=== PATIENT | male | born 1995 | race Caucasian/White ===

== ENCOUNTER 2022-08-06 15:57 | Emergency (ER) | payer OTHER, SELFPAY ==
[2022-08-06 15:59] VITALS: BP 138/74; PULSE 76; RESP 16; TEMP 37.1; O2SAT 100
--- NOTE | 2022-08-06 16:19 | ED.GENADULT ---
HPI - General Adult General Chief complaint: Unspecified Stated complaint: facial swelling Time Seen by Provider: 08/06/22 16:05 Source: patient Mode of arrival: ambulatory Limitations: no limitations History of Present Illness HPI narrative: 27-year-old male presents today with complaints of left jaw pain and swelling that he noted this morning. Patient states he does have poor dentition and is waiting for his insurance to kick in next week. Patient able to intake food and fluids without issue. Denies shortness of breath, or difficulty swallowing. Denies fever, chills, body aches. Related Data Allergies Allergy/AdvReac Type Severity Reaction Status Date / Time No Known Allergies Allergy Verified 08/06/22 16:06 Review of Systems Review of Systems: CONSTITUTIONAL: Denies fever, chills, or sweats. EYES: Denies visual changes, redness, or discharge. ENT: Left jaw swelling and left tooth pain. Denies rhinorrhea, congestion, sore throat, or otalgia. CARDIOVASCULAR: Denies chest pain, palpitations, or edema. RESPIRATORY: Denies cough or dyspnea. SKIN: Denies rash or itching. MUSCULOSKELETAL: Denies back pain, joint pain, or myalgia. NEUROLOGIC: Denies headache, numbness, dizziness, or weakness. PSYCHIATRIC: Denies anxiety or depression. Exam Narrative: GENERAL: Well-appearing, well-nourished, and in no acute distress. HEAD: Normocephalic, atraumatic. EYES: PERRLA and EOMI. ENT: Nares clear, no rhinorrhea or epistaxis. Mucous membranes moist. Oropharynx without tonsillar hypertrophy exudate or other lesions. Bilateral TMs pearly soriano nonbulging. Swelling to left lower jaw minimal to moderate in nature. No abscess noted. Tenderness to left third molar. Erythema noted to where third molar is erupting. No Ludewig's angina, no trismus. NECK: Supple. No adenopathy or masses. No carotid bruits or JVD CHEST: Clear to auscultation. No respiratory distress. No wheezes rales or rhonchi HEART: Regular rate and rhythm. No murmur heard. Normal peripheral pulses. . Course Vital Signs Vital signs: Vital Signs Temperature 98.7 F 08/06/22 15:59 Pulse Rate 76 08/06/22 15:59 Respiratory Rate 16 08/06/22 15:59 Blood Pressure 138/74 08/06/22 15:59 Pulse Oximetry 100 08/06/22 15:59 Oxygen Delivery Room Air 08/06/22 15:59 Temperature 98.7 F 08/06/22 15:59 Pulse Rate 76 08/06/22 15:59 Respiratory Rate 16 08/06/22 15:59 Blood Pressure 138/74 08/06/22 15:59 Pulse Oximetry 100 08/06/22 15:59 Oxygen Delivery Room Air 08/06/22 15:59 Medical Decision Making MDM Narrative Medical decision making narrative: 27-year-old male HPI as noted. Differentials as noted below. Moderate amount of swelling but patient able to open mouth. No trismus or Ludewig's angina noted. Dexamethasone given here to help with the swelling and antibiotics prescribed. Patient will be discharged home and instructed to follow-up with dentist. She is aware to return with any new or worsening symptoms. Differential Diagnosis Differential Diagnosis: Differential diagnosis include toothache, dental abscess, dental caries, jaw swelling. Medical Records Medical records reviewed: Yes I reviewed the external patient's medical records. Vital Signs Vital Signs: Vital Signs Temperature 98.7 F 08/06/22 15:59 Pulse Rate 76 08/06/22 15:59 Respiratory Rate 16 08/06/22 15:59 Blood Pressure 138/74 08/06/22 15:59 Pulse Oximetry 100 08/06/22 15:59 Oxygen Delivery Room Air 08/06/22 15:59 Temperature 98.7 F 08/06/22 15:59 Pulse Rate 76 08/06/22 15:59 Respiratory Rate 16 08/06/22 15:59 Blood Pressure 138/74 08/06/22 15:59 Pulse Oximetry 100 08/06/22 15:59 Oxygen Delivery Room Air 08/06/22 15:59 Discharge Plan Discharge Clinical Impression: Toothache, Mandibular swelling Patient Disposition: Home, Self-Care Condition: Stable Instructions: Antibiotic Form, Toothache (ED)
[2022-08-06] MEDS: IBUPROFEN 600 MG TABLET PO (16:27)
[2022-08-06] MEDS: AMOXICILLIN/CLAVULANATE K 875-125 MG TAB 1 TABLET PO (16:28)
== END 2022-08-06 16:45 | disposition home or self-care (01) ==
LOC: ANHED 16:21
PROVIDERS: Emergency Provider Nurse Practitioner Family
DX: K08.89 Other specified disorders of teeth and supporting structures (principal); R22.0 Localized swelling, mass and lump, head
CPT/HCPCS: 96372; 99283; A9270; J1100

== ENCOUNTER 2023-03-02 14:38 | Emergency (ER) | payer OTHER, SELFPAY ==
--- NOTE | ~2023-03-02 | XR_ITS ---
EXAMINATION: XR chest 2V 03/02/2023 15:09 INDICATION: Chest tightness PROCEDURE: 2 view chest COMPARISON: 10/21/2018 FINDINGS: The lungs are clear. The cardiomediastinal silhouette is within normal limits. There are no pleural effusions. There is no pneumothorax suspected. IMPRESSION: 1: NO ACUTE CARDIOPULMONARY DISEASE. Reviewed, dictated and finalized at location L.
--- NOTE | 2023-03-02 14:40 | ECG_ITS ---
Measurements Intervals [place] Rate: 80 P: -7 [place]: 127 QRS: 55 QRSD: 105 T: 48 QT: 374 QTc: 434 Interpretive Statements SINUS RHYTHM COMPARED TO ECG 10/21/2018 14:27:34 NO SIGNIFICANT CHANGES Electronically Signed On 03-02-2023 16:21:32 CDT by Paul Ram M.D.
[2023-03-02 14:41] VITALS: BP 138/82; PULSE 78; RESP 16; TEMP 36.7; O2SAT 97
[2023-03-02 15:02] LABS: Basophils Percent Auto 0.6 % (0.2-1.2); Eosinophils Absolute Auto 0.1 K/mm3 (0-0.3); Eosinophils Percent Auto 1.3 % (0-4.4); Hematocrit 46.5 % (42.0-52.0); Hemoglobin 15.6 g/dL (14.0-18.0); Immature Granulocyte Absolute 0.01 K/mm3 (0.00-0.031); Immature Granulocyte Percent A 0.1 % (0-0.5); Lymphocytes Absolute Auto 1.59 K/mm3 (0.9-3.2); Lymphocytes Percent Auto 22.9 % (18.3-44.2); Mean Corpuscular HGB Conc 33.5 g/dl (32-36); Mean Corpuscular Hemoglobin 30.9 pg (26-34); Mean Corpuscular Volume 92.1 fl (80-100); Mean Platelet Volume 9.3 fl (7.4-10.4); Monocytes Absolute Auto 0.6 K/mm3 (0.1-0.6); Monocytes Percent Auto 8.1 % (2.6-8.5); Neutrophils Absolute Auto 4.7 K/mm3 (1.3-6.7); Platelet Count Result 291 k/mm3 (150-375); Red Blood Count 5.05 M/mm3 (4.6-6.20); Red Cell Distribution Width 12.5 % (11.5-14.5); White Blood Count 6.9 K/mm3 (4.5-10.0)
[2023-03-02 15:08] LABS: Prothrombin Time 13.2 Seconds (11.1-14.7)
[2023-03-02 15:09] LABS: Partial Thromboplastin Time 26.9 SECONDS (22.3-36.8)
[2023-03-02 15:22] LABS: Alanine Aminotransferase 24 U/L (6-50); Albumin Level 4.7 g/dL (3.5-5.1); Alkaline Phosphatase 47 U/L (38-126); Anion Gap 9 mmol/L (8-16); Aspartate Amino Transferase 22 U/L (17-59); Bilirubin,Total 0.4 mg/dL (0.2-1.3); Blood Urea Nitrogen 12 mg/dL (9-20); Calcium 8.7 mg/dL (8.4-10.2); Carbon Dioxide 24 mmol/L (22-30); Chloride 107 mmol/L (98-107); Estimated CRCL calculation 103 ml/min; Estimated Glomerular Filt Rate > 60; Glucose 113 mg/dL (65-110); Lipase 67 U/L (23-300); Potassium 3.8 mmol/L (3.4-5.0); Sodium 140 mmol/L (137-145)
[2023-03-02 15:34] LABS: Troponin I < 0.012 ng/mL (0.000-0.034)
[2023-03-02 16:12] VITALS: O2SAT 100
[2023-03-02] MEDS: ASPIRIN 81 MG CHEWABLE TABLET 324 MG PO (16:20)
--- NOTE | 2023-03-02 16:49 | ED.CHESTPAIN ---
HPI - Chest Pain General Chief Complaint: Chest Pain Stated Complaint: chest pain Time Seen by Provider: 03/02/23 16:27 History of Present Illness HPI narrative: 27 y/o M reports for evaluation of substernal chest tightness and shortness of breath that started this morning after waking up. Pt states he was laying in his bed with the onset of symptoms. He describes the chest pain as tightness, does not radiate anywhere, no aggravating or relieving factors. States that shortness of breath felt like he was not oxygenating well . He denies the sensation of breathing quickly. Patient states the chest tightness and shortness of breath lasted from 11 AM today until 4 PM and resolve spontaneously. He is currently denying chest pain and shortness of breath. He denies history of anxiety or feeling anxious, cough or congestion, fever, abdominal pain, indigestion, back pain, recent surgeries or hospitalizations, history of VTE, palpitations, diaphoresis, n/v/d. States he has never experienced these symptoms before. He does not have a PCP. Patient denies smoking, but does state he vapes. Related Data Allergies Allergy/AdvReac Type Severity Reaction Status Date / Time No Known Allergies Allergy Verified 08/06/22 16:06 Review of Systems Review of Systems: CONSTITUTIONAL: Denies fever, chills EYES: Denies visual changes, redness, or discharge. ENT: Denies rhinorrhea, congestion, sore throat, or otalgia. CARDIOVASCULAR: See HPI RESPIRATORY: See HPI GASTROINTESTINAL: Denies abdominal pain, nausea, vomiting, or diarrhea. GENITOURINARY: Denies dysuria or hematuria. SKIN: Denies rash or itching. MUSCULOSKELETAL: Denies back pain, joint pain, or myalgia. NEUROLOGIC: Denies headache, numbness, dizziness, or weakness. PSYCHIATRIC: Denies anxiety or depression. Exam Narrative: GENERAL: Well-appearing, in no acute distress. Speaking in full sentences. HEAD: Normocephalic EYES: PERRLA ENT: Nares clear. Mucous membranes moist. Oropharynx without tonsillar hypertrophy exudate or other lesions. NECK: Supple. CHEST: No respiratory distress. Clear to auscultation, no adventitious breath sounds. No tenderness to chest wall. HEART: Regular rate and rhythm. No murmur heard. Normal peripheral pulses. ABDOMEN: Soft, nontender, normal active bowel sounds. EXTREMITIES: Normal range of motion. No edema. Negative Homans. SKIN: Warm, dry, no rash. NEURO: No focal deficits. Alert and oriented x3. PSYCH: Normal mood and affect. Course Vital Signs Vital signs: Vital Signs Temperature 98.1 F 03/02/23 14:41 Pulse Rate 78 03/02/23 14:41 Respiratory Rate 16 03/02/23 14:41 Blood Pressure 138/82 03/02/23 14:41 Pulse Oximetry 97 03/02/23 14:41 Oxygen Delivery Room Air 03/02/23 14:41 Temperature 98.1 F 03/02/23 14:41 Pulse Rate 52 L 03/02/23 17:12 Respiratory Rate 16 03/02/23 17:12 Blood Pressure 116/63 03/02/23 17:12 Pulse Oximetry 98 03/02/23 17:12 Oxygen Delivery Room Air 03/02/23 16:12 MDM - Chest Pain MDM Narrative Medical decision making narrative: 27 y/o M reports for evaluation of substernal chest tightness and shortness of breath that started this morning after waking up, lasted 5 hours and resolved prior to evaluation. Vitals normal. Patient well-appearing on exam. Lungs clear. EKG shows normal sinus rhythm, no ST elevations or depressions. Troponin 1 and 2 normal. Chest x-ray without acute cardiopulmonary abnormalities. Lab work unremarkable. PERC negative. Heart score 1. Labs and imaging discussed with the patient. He consistently denies return of chest pain or shortness of breath. I have no explanation for his chest pain at this time, he denies anxiety and indigestion. Considering heart score and resolution of symptoms, I feel it is safe for him to follow up outpatient. PCP referral provided. Patient agrees with the plan and verbalized understanding. Discharged in stable condition
[2023-03-02 17:01] VITALS: BP 116/63; PULSE 50; RESP 13; O2SAT 99
[2023-03-02 17:12] VITALS: BP 116/63; PULSE 52; RESP 16; O2SAT 98
[2023-03-02 17:30] VITALS: BP 110/69; PULSE 60; RESP 16; O2SAT 99
[2023-03-02 18:12] LABS: Troponin I < 0.012 ng/mL (0.000-0.034)
[2023-03-02 18:15] VITALS: BP 116/80; PULSE 84; RESP 17; O2SAT 95
== END 2023-03-02 18:29 | disposition home or self-care (01) ==
PROVIDERS: Emergency Medicine; Emergency Provider Physician Assistant
DX: R07.89 Other chest pain (principal)
CPT/HCPCS: 36415; 71046; 80053; 83690; 84484; 85025; 85610; 85730; 93005; 99284; A9270

== ENCOUNTER 2023-03-03 16:58 | Emergency (ER) | payer OTHER, SELFPAY ==
--- NOTE | 2023-03-03 17:03 | ED.SOB ---
HPI - SOB/Dyspnea General Chief Complaint: Shortness of Breath/Dyspnea Stated Complaint: SOB/HANDS TINGLING Time Seen by Provider: 03/03/23 17:17 Source: patient and RN notes reviewed Mode of arrival: ambulatory Limitations: no limitations History of Present Illness HPI Narrative: 27-year-old male presents with concern for transient shortness of breath. Reports he was seen in the emergency room yesterday for a similar episode. He had a full workup in the emergency room with no abnormal findings. He reports the episode lasted about 5 hours yesterday. Reports that lasted about 3 hours today. Reports this started around 3:00 a.m. while he was at work, he felt ?shortness of breath?, his face looked pale and his hands tingle. He denied any chest pain at that time. Denies any nausea. Denies any headache or syncope. He did not take any medications for the symptoms. He reports that he has been taking an antihistamine. 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 He denies any current symptoms MD elicited complaint: shortness of breath Related Data Home Medications Medication Instructions Recorded Confirmed fexofenadine 180 mg tablet 180 mg PO DAILY 03/03/23 03/03/23 Allergies Allergy/AdvReac Type Severity Reaction Status Date / Time No Known Allergies Allergy Verified 08/06/22 16:06 Review of Systems Review of Systems: CONSTITUTIONAL: Denies malaise, chills, sweats, or fever. EYES: Denies visual changes, redness, or discharge. ENT: Reports rhinorrhea, congestion, sinus pain, otalgia and sore throat. CARDIOVASCULAR: Denies chest pain, palpitations, or edema. RESPIRATORY: Denies cough. Denies current dyspnea. Reports shortness of breath earlier today GASTROINTESTINAL: Denies abdominal pain, nausea, vomiting, diarrhea SKIN: Denies rash or itching. MUSCULOSKELETAL: Denies myalgia. NEUROLOGIC: Denies headache. All systems reviewed & are unremarkable except as noted in HPI and below PMFSH Comments At time of signature, agree with nursing past medical, surgical, social and family history. There is no relevant family history pertinent to the presenting complaint Exam Narrative: GENERAL: Well-appearing, well-nourished, and in no acute distress. HEAD: Normocephalic EYES: PERRLA, conjunctivae clear ENT: Nares clear, turbinates edematous and erythematous, clear discharge. Mucous membranes moist. TM pearly soriano with sharp light reflex bilaterally; no tragal tenderness. Oropharynx not erythematous without lesions. Tonsils not enlarged and without exudate, no drooling, no hoarseness, no trismus, uvula midline. NECK: Supple. No lymphadenopathy CHEST: Clear to auscultation, breath sounds equal. No wheezing, rhonchi, rales, or stridor. No respiratory distress, speaks in full sentences. HEART: Regular rate and rhythm. No murmur heard. SKIN: Warm, dry, no rash. NEURO: Alert and oriented x3. PSYCH: Normal mood and affect Course Course Emergency Course: Patient is aware of diagnosis, understands and agrees to treatment plan. Anticipatory guidance given. Patient agrees to follow-up as directed and is aware of reasons to seek care at the emergency department. Portions of this record may have been created with voice recognition software Level of Care: Express Care Visit Vital Signs Vital signs: Reviewed. MDM - SOB/Dyspnea Lab Data Attestation: I reviewed the patient's lab results. Critical Care Time Critical Care Time Critical Care Time: No Discharge Plan Discharge Clinical Impression: Shortness of breath Patient Disposition: Home, Self-Care Condition: Stable Instructions: Shortness of Breath (ED) Additional Instructions: 1) Please follow-up with your primary care doctor in the next 1-2 days. 2) If you have any worsening of symptoms or any other urgent concerns please go to the ER. 3) Please read and follow information included in d
[2023-03-03 17:07] VITALS: BP 115/72; PULSE 67; RESP 16; TEMP 37; O2SAT 99
== END 2023-03-03 17:31 | disposition home or self-care (01) ==
PROVIDERS: Emergency Provider Nurse Practitioner
DX: R06.02 Shortness of breath (principal)
CPT/HCPCS: 99213; G0463

== ENCOUNTER 2024-02-13 02:52 | Emergency (ER) | payer BC, SELFPAY ==
--- NOTE | ~2024-02-13 | XR_ITS ---
[id number] 02/13/2024 03:54 Indication: Neck pain Procedure: 3 views cervical spine Comparison: No prior studies for comparison. Findings: Vertebral body heights are maintained. No significant disc narrowing. No prevertebral soft tissue abnormality. Lung apices are normal. Odontoid process is normal. Lateral masses are normally a ligned. No fracture or traumatic malalignment. Impression: 1: No acute abnormality of the cervical spine. Reviewed, dictated and finalized at location B. Impression: 1: No acute abnormality of the cervical spine.
--- NOTE | ~2024-02-13 | XR_ITS ---
XR foot RT min 3V 02/13/2024 03:54 Indication: Right foot pain Procedure: 3 views right foot Comparison: No prior studies for comparison. Findings: No fracture, subluxation or dislocation. Lisfranc joint intact. No significant soft tissue abnormality. No foreign bodies. Impression: 1: No acute bone or joint abnormality. Reviewed, dictated and finalized at location B. Impression: 1: No acute bone or joint abnormality.
[2024-02-13 02:54] VITALS: BP 139/83; PULSE 69; RESP 19; TEMP 36.2; O2SAT 100
[2024-02-13] MEDS: KETOROLAC 30 MG/ML VIAL (*BKC) IM (03:42)
--- NOTE | 2024-02-13 04:15 | ED.GENADULT ---
HPI - General Adult General Chief complaint: Extremity Injury, Lower Stated complaint: right foot pain Time Seen by Provider: 02/13/24 03:27 History of Present Illness HPI narrative: Patient 28-year-old gentleman who presents emergency department with chief complaint of neck and foot pain. The patient states for the last few weeks he has been having pain in his right foot in the heel area the patient also reports he has been having pain in his neck worse on the right side the patient reports the pain is worse with movement and improved with rest. The patient reports he has been taking ibuprofen without success reports that he has had no Related Data Home Medications Medication Instructions Recorded Confirmed ibuprofen 200 mg tablet 200 mg PO Q6H PRN 06/15/23 06/15/23 Allergies Allergy/AdvReac Type Severity Reaction Status Date / Time No Known Allergies Allergy Verified 02/13/24 02:57 Review of Systems Review of Systems: A 10 system review of systems was completed on the patient and is negative except for what is stated in the HPI. Nursing and ancillary documentation was reviewed. [facility] Family History Family History Father Diabetes mellitus Other Diabetes mellitus Other Diabetes mellitus Grandparent Diabetes mellitus Mother Depression Anxiety Social History Social History Smoking status: Never smoker Tobacco type: e-cigarettes/vaping Alcohol intake: current Lack of Transportation: No Lack of Food: Never True Current Housing: I Have Housing Concerned About Future Housing: No Difficulty Paying Gas/Electric Bills: No Difficulty Paying for Meds: No Currently Unemployed: No Education: High School Diploma/GED Difficulty w/ Childcare or Family Care: No Exam Narrative: GENERAL: Well-appearing, well-nourished, and in no acute distress. HEAD: Normocephalic, atraumatic. EYES: PERRLA and EOMI. ENT: Nares clear, no rhinorrhea or epistaxis. Mucous membranes moist. NECK: Supple. Tenderness to palpation is paraspinous muscles of the right neck CHEST: Clear to auscultation. No respiratory distress. HEART: Regular rate and rhythm. No murmur heard. Normal peripheral pulses. ABDOMEN: Soft, nontender, nondistended, normal active bowel sounds. EXTREMITIES: Normal range of motion tenderness to palpation the heel of the right foot. No edema. SKIN: Warm, dry, no rash. NEURO: No focal deficits. Alert and oriented x3. PSYCH: Normal mood and affect. Course Vital Signs Vital signs: Vital Signs Temperature 36.2 C L 02/13/24 02:54 Pulse Rate 69 02/13/24 02:54 Respiratory Rate 02/13/24 02:54 Blood Pressure 139/83 02/13/24 02:54 Pulse Oximetry 02/13/24 02:54 Oxygen Delivery Room Air 02/13/24 02:54 Temperature 36.2 C L 02/13/24 02:54 Pulse Rate 02/13/24 02:54 Respiratory Rate 02/13/24 02:54 Blood Pressure 139/83 02/13/24 02:54 Pulse Oximetry 02/13/24 02:54 Oxygen Delivery Room Air 02/13/24 02:54 Medical Decision Making MDM Narrative Medical decision making narrative: differential diagnosis includes sprain strain, fracture, foreign body, trauma plain film x-rays of the neck and foot showed no evidence of fracture no evidence of foreign body Vital Signs Vital Signs: Vital Signs Temperature 36.2 C L 02/13/24 02:54 Pulse Rate 02/13/24 02:54 Respiratory Rate 02/13/24 02:54 Blood Pressure 139/83 02/13/24 02:54 Pulse Oximetry 02/13/24 02:54 Oxygen Delivery Room Air 02/13/24 02:54 Temperature 36.2 C L 02/13/24 02:54 Pulse Rate 02/13/24 02:54 Respiratory Rate 02/13/24 02:54 Blood Pressure 139/83 02/13/24 02:54 Pulse Oximetry 02/13/24 02:54 Oxygen Delivery Room Air 02/13/24 02:54 Discharge Plan Discharge Clinical I
== END 2024-02-13 04:31 | disposition home or self-care (01) ==
PROVIDERS: Emergency Provider Emergency Medicine; PCP Internal Medicine
DX: M79.671 Pain in right foot (principal); S16.1XXA Strain of muscle, fascia and tendon at neck level, initial encounter; F17.290 Nicotine dependence, other tobacco product, uncomplicated; X58.XXXA Exposure to other specified factors, initial encounter
CPT/HCPCS: 72040; 73630; 96372; 99284; J1885